=== PATIENT | female | born 1975 | race Caucasian/White ===

== ENCOUNTER → 2016-07-04 | Outpatient (CLI) | payer BC ==
[~2016-07-04] MED LIST: CIPR250T5 PO
--- NOTE | 2016-07-04 17:56 | DIAGNOSTIC IMAGING REPORT ---
ABDOMINAL ULTRASOUND, RIGHT UPPER QUADRANT HISTORY: Abdominal pain. COMPARISON: None. FINDINGS: Liver is sonographically normal. The gallbladder is contracted. There are no gallstones. Borderline gallbladder wall thickening may be due to contraction. The pancreas is sonographically normal. The caliber of the common bile duct is at the upper limits of normal, measuring 6 to 7 mm. There is no right hydronephrosis. IMPRESSION: 1. No gallstones. Contracted gallbladder. 2. Caliber of the common bile duct at the upper limits of normal. This could be correlated with obstructive liver function tests. Electronically signed by: Ramiro De La Cruz M.D. 07/04/2016 5:55 PM Dictated Date/Time: 07/04/2016 5:53 PM
== END | disposition home or self-care (01) ==
LOC: C.ULTR 17:07
PROVIDERS: ATTEND Family Medicine
DX: R10.9 Unspecified abdominal pain (principal)

== ENCOUNTER → 2016-07-25 | Outpatient (CLI) | payer BC ==
[~2016-07-25] MED LIST changes: +SINCALIDE INJ 1.45 MCG in SODIUM CHLORIDE 0.9% 100ML 100 ML IV ONE
--- NOTE | 2016-07-25 12:37 | DIAGNOSTIC IMAGING REPORT ---
NUCLEAR MEDICINE HEPATOBILIARY STUDY WITH EJECTION FRACTION ANALYSIS CLINICAL HISTORY: Upper abdominal pain COMPARISON STUDY: Biliary ultrasound dated 07/04/2016 FINDINGS: The patient was injected with 5.4 mCi of technetium 99m Choletec. Sequential anterior imaging was performed. Hepatic excretion appeared unremarkable. The gallbladder was first visualized on the 15 minute image. At 1 hour, the patient was administered 1.45 mcg of sincalide utilizing a 30 minute infusion. There was normal passage of activity into small bowel. The gallbladder ejection fraction was normal measuring 95%. IMPRESSION: Normal study. No evidence of cystic duct obstruction. Normal gallbladder ejection fraction of 95%. Electronically signed by: Naresh Kuo M.D. 07/25/2016 12:36 PM Dictated Date/Time: 07/25/2016 12:35 PM
== END | disposition home or self-care (01) ==
LOC: C.NUCL 10:19
PROVIDERS: ATTEND Nurse Practitioner Family
DX: R10.9 Unspecified abdominal pain (principal)

== ENCOUNTER → 2016-07-31 | Outpatient (CLI) | payer BC ==
[~2016-07-31] MED LIST changes: -SINCALIDE INJ 1.45 MCG in SODIUM CHLORIDE 0.9% 100ML 100 ML IV ONE
--- NOTE | 2016-07-31 14:06 | MAMMOGRAPHY REPORT ---
BILATERAL DIGITAL DIAGNOSTIC MAMMOGRAM TOMOSYNTHESIS WITH CAD AND TARGETED LEFT ULTRASOUND: 7 CLINICAL HISTORY: The patient reports intermittent left medial breast pain for approximately one mon th. She reports that her clinician felt fibrous tissue in the region of pain, but the patient denie s a palpable lump. TECHNIQUE: Breast tomosynthesis in addition to standard 2D mammography was performed. Current study was also evaluated with a Computer Aided Detection (CAD) system. Bilateral CC and MLO 2-D and frank synthesis images were obtained. COMPARISON: No prior exams were available for comparison. BREAST COMPOSITION: There are scattered areas of fibroglandular density in both breasts. FINDINGS: There are no suspicious masses, calcifications, or areas of architectural distortion note d within either breast mammographically. Targeted ultrasound was performed of the area of pain and associated area of fibrous tissue pointed out by the patient, involving the left medial breast from approximately 7 to 9:00. Sonographically normal tissue is seen in this region, without evidence of a mass or other suspicious sonographic abn ormality. IMPRESSION: ACR BI-RADS CATEGORY 1: NEGATIVE, TARGETED ULTRASOUND ACR BI-RADS CATEGORY 1: NEGATIVE No suspicious mammographic or sonographic abnormality at the site of left medial breast pain pointed out by the patient. There is no mammographic or targeted sonographic evidence of malignancy. [facility] mmend clinical follow-up for left breast complaints, and recommend routine bilateral screening mammo grams starting at the age of 40. The patient has been verbally notified of the results. Approximately 10% of breast cancers are not detected with mammography. A negative mammographic repor t should not delay biopsy if a clinically suggestive mass is present. Arielle Mccarthy M.D. /:07/31/2016 08:58:03 [employer] Prescription Clerk: Christianne NICKERSON)(Joseph), [facility] letter sent: Normal 1/2 BI-RADS Code: ACR BI-RADS Category 1: Negative Ultrasound BI-RADS: ACR BI-RADS Category 1: Negative
== END | disposition home or self-care (01) ==
LOC: C.MAMM 08:27
PROVIDERS: ATTEND Physician Assistant
DX: N64.4 Mastodynia (principal)

== ENCOUNTER → 2016-09-10 | Outpatient (CLI) | payer BC ==
[~2016-09-10] MED LIST changes: -CIPR250T5 PO; +CPR250 PO
--- NOTE | 2016-09-10 17:06 | DIAGNOSTIC IMAGING REPORT ---
LEFT HAND MIN 3 VIEWS ROUTINE CLINICAL HISTORY: Left hand pain and swelling. COMPARISON: Left hand radiographs July 06, 2015. FINDINGS: Alignment of the left hand is anatomic. No acute fracture is identified. There is no osseous lesion. Carpal bones are intact. Joint spaces are preserved. IMPRESSION: No acute fracture or dislocation of the left hand. Electronically signed by: Ramiro De La Cruz M.D. 09/10/2016 5:05 PM Dictated Date/Time: 09/10/2016 5:04 PM
== END | disposition home or self-care (01) ==
LOC: C.RAD1850 16:27
PROVIDERS: ATTEND Nurse Practitioner Family
DX: R22.32 Localized swelling, mass and lump, left upper limb (principal); M79.642 Pain in left hand